=== PATIENT | female | born 1955 | race African-American/Black ===

== ENCOUNTER 2016-05-09 17:02 | Emergency (ER) | payer MEDICAID, OTHER ==
[~2016-05-09] VITALS: Ht 182.9 cm; Wt 135.2 kg
[~2016-05-09 17:02] MED LIST: ALBUTEROL SULF8.5 GM INH; ALBUTEROL2.5 MG/3 M HHN; ALBUTEROL2.5 MG/3 M INH; BENZTROPINE MESY1 MG PO; BUPROPION HCL75 MG PO; BUPROPION XL150 MG; BUSPIRONE HCL5 M1 ORAL; CYMBALTA20 MG; DESYREL50 MG; IBUPROFEN600 MG ORAL; LEVAQUIN PO; NORCO 5-325 TA1 EACH ORAL; OMEPRAZOLE20 M2 PO; PREDNISONE10 M2 PO; PREDNISONE20 MG ORAL; PROTONIX40 MG ORAL; RISPERIDONE3 MG; RISPERIDONE4 MG PO; SYMBICORT 16010.2 G1 IH; TRAMADOL HCL50 MG ORAL; TRAZODONE HCL50 MG PO; UNOBMED; VENTOLIN HFA18 GM INH; [UNRECOGNIZED DRUG - OTHER]; risperidone PO
[2016-05-09] MEDS ORDERED: DICLOFENAC SODI25 MG ORAL (17:16)
[2016-05-09 18:31] LABS: BASOPHILS % (AUTO) 2.2 % (0.0-2.0); EOSINOPHILS % (AUTO) 3.5 % (0.0-3.0); LYMPHOCYTES % (AUTO) 25.3 % (20.0-45.0); MEAN CORPUSCULAR HEMOGLOBIN 28.5 PG (27.0-31.0); MEAN CORPUSCULAR HGB CONC 31.7 G/DL (32.0-36.0); MEAN CORPUSCULAR VOLUME 90 FL (80-99); MEAN PLATELET VOLUME 5.5 FL (6.5-10.1); MONOCYTES % (AUTO) 7.4 % (1.0-10.0); NEUTROPHILS % (AUTO) 61.6 % (45.0-75.0); PLATELET COUNT 349 K/UL (150-450); RED BLOOD COUNT 3.79 M/UL (4.20-5.40); RED CELL DISTRIBUTION WIDTH 13.4 % (11.6-14.8); WHITE BLOOD COUNT 6.3 K/UL (4.8-10.8)
--- NOTE | 2016-05-09 18:41 | Emergency Room Report ---
History of Present Illness General Chief Complaint: General Complaint Source: Patient Present Illness HPI 52-year-old female presents ED complaining of right leg swelling and dizziness. Patient states the last several weeks she has had increased swelling in her right ankle and calf. Patient states she was started on "water pills" by her PMD one month ago but states it is not helping. Denies any shortness of breath. Denies any chest pain. Patient also states she feels dizzy at times. States dizziness can happen for a few seconds then immediately resolved. happens occasionally. Denies any dizziness at this time. Also notes intermittent headaches, 5/10, sharp, associated with nausea. Denies vomiting. Denies neck stiffness. Denies fevers or chills. No aggravating relieving factors. Denies any other associated symptom Allergies: Coded Allergies: FISH CONTAINING PRODUCTS (Verified Allergy, Severe, Hives, 06/14/12) Pork (Verified Allergy, Intermediate, 06/09/13) smelling pork cause nausea-eating pork cause vomiting Patient History Past Medical History: asthma, COPD Past Surgical History: none Pertinent Family History: none Social History: Denies: alcohol use, drug use, smoking Now: No Immunizations: UTD Reviewed Nursing Documentation: PMH: Agreed, PSxH: Agreed Nursing Documentation-PMH Hx Hypertension: No - ARTHRITIS Hx Asthma: Yes Hx COPD: Yes Hx Cancer: No Hx Gastrointestinal Problems: Yes Hx Neurological Problems: No Review of Systems All Other Systems: negative except mentioned in HPI Physical Exam Vital Signs Date Time Temp Pulse Resp B/P Pulse Ox O2 Delivery O2 Flow Rate FiO2 05/09/16 17:11 98.1 109 20 131/89 98 Room Air Sp02 EP Interpretation: reviewed, normal General Appearance: no apparent distress, alert, GCS 15, non-toxic, obese Head: normocephalic, atraumatic Eyes: bilateral eye PERRL, bilateral eye normal inspection ENT: hearing grossly normal, normal pharynx, no angioedema, normal voice Neck: full range of motion, supple/symm/no masses Respiratory: chest non-tender, lungs clear, normal breath sounds, speaking full sentences Cardiovascular #1: regular rate, rhythm, no edema Cardiovascular #2: 2+ carotid (R), 2+ carotid (L), 2+ radial (R), 2+ radial (L) , 2+ dorsalis pedis (R), 2+ dorsalis pedis (L) Gastrointestinal: normal bowel sounds, non tender, soft, non-distended, no guarding, no rebound Rectal: deferred Genitourinary: normal inspection, no CVA tenderness Musculoskeletal: back normal, gait/station normal, normal range of motion, non- tender, swelling - R ankle. 1+ Neurologic: alert, oriented x3, responsive, motor strength/tone normal, sensory intact, speech normal Psychiatric: judgement/insight normal, memory normal, mood/affect normal, no suicidal/homicidal ideation Reflexes: 3+ bicep (R), 3+ bicep (L), 3+ tricep (R), 3+ tricep (L), 3+ knee (R) , 3+ knee (L) Skin: normal color, no rash, warm/dry, well hydrated Lymphatic: no adenopathy Medical Decision Making Diagnostic Impression: Primary Impression: Pedal edema ER Course Hospital Course 52-year-old female presents ED complaining of right leg swelling, intermittent headaches and dizziness Differential diagnoses include: arrythmia, dehydration, intracranial bleed, seizure , DVT Clinical course Patient placed on stretcher. on tube knitter. After initial history and physical I ordered labs, EKG, chest Xray, IVFs, CT Brain , Doppler ultrasound labs reviewed- no leukocytosis, Hb/Hct stable, electrolytes ok, troponins negative CT Brain - unremarkable Chest x-ray- no acute process EKG - NSr, no acute changes Doppler US - no evidence of DVT I. I feel this is a highly complex case requiring extensive working including EKG/Rhythm strip, Xray/CT/US, Blood/urine lab work, repeat exams while in ED, and administration of strong opiates/narcotics for pain control, admission to hospital or close patient follow up. Diagnosis - pedal edema Stable and discharged to home. continue medications as directed. Followup with PMD. Return to ED if symptoms recur or worsen Labs Test 05/09/16 18:10 White Blood Count 6.3 K/UL (4.8-10.8) Red Blood Count 3.79 M/UL (4.20-5.40) Hemoglobin 10.8 G/DL (12.0-16.0) Hematocrit 34.1 % (37.0-47.0) Mean Corpuscular Volume 90 FL (80-99) Mean Corpuscular Hemoglobin 28.5 PG (27.0-31.0) Mean Corpuscular Hemoglobin Concent 31.7 G/DL (32.0-36.0) Red Cell Distribution Width 13.4 % (11.6-14.8) Platelet Count 349 K/UL (150-450) Mean Platelet Volume 5.5 FL (6.5-10.1) Neutrophils (%) (Auto) 61.6 % (45.0-75.0) Lymphocytes (%) (Auto) 25.3 % (20.0-45.0) Monocytes (%) (Auto) 7.4 % (1.0-10.0) Eosinophils (%) (Auto) 3.5 % (0.0-3.0) Basophils (%) (Auto) 2.2 % (0.0-2.0) Sodium Level 144 mEQ/L (135-145) Potassium Level 3.5 mEQ/L (3.4-4.9) Chloride Level 102 mEQ/L (98-107) Carbon Dioxide Level 29 mEQ/L (20-30) Anion Gap 13 (5-15) Blood Urea Nitrogen 10 mg/dL (7-23) Creatinine 1.0 mg/dL (0.5-0.9) Estimat Glomerular Filtration Rate > 60 mL/min (>60) Glucose Level 94 mg/dL (74-106) Calcium Level 9.1 mg/dL (8.6-10.2) Total Bilirubin 0.2 mg/dL (0.0-1.2) Aspartate Amino Transf (AST/SGOT) 22 U/L (5-40) Alanine Aminotransferase (ALT/SGPT) 19 U/L (3-33) Alkaline Phosphatase 114 U/L (35-104) Total Creatine Kinase 451 U/L (26-140) Creatine Kinase MB 5.5 ng/mL (< 3.8) Creatine Kinase MB Relative Index 1.2 Troponin I < 0.30 ng/mL (<=0.30) Total Protein 6.6 g/dL (6.6-8.7) Albumin 3.9 g/dL (3.5-5.2) Globulin 2.7 g/dL Albumin/Globulin Ratio 1.4 (1.0-2.7) EKG Diagnostic Results Rate: tachycardiac Rhythm: NSR ST Segments: no acute changes ASA given to the pt in ED: No Rhythm Strip Diag. Results EP Interpretation: yes Rhythm: NSR, no PVC's, no ectopy Chest X-Ray Diagnostic Results EP Interpretation: Yes Findings: no consolidation, no effusion, no pneumothorax, no acute cardiopulmonary disease Number of Views: 1 CT/MRI/US Diagnostic Results CT/MRI/US Diagnostic Results : Imaging Test Ordered: CT Head, Doppler US Impression CT Head - no acute process Doppler US - no evidence of DVT Last Vital Signs Date Time Temp Pulse Resp B/P Pulse Ox O2 Delivery O2 Flow Rate FiO2 05/09/16 17:11 98.1 109 20 131/89 98 Room Air Status: improved Disposition: HOME, SELF-CARE Condition: Stable Referrals: [facility] (PCP) FRANCESCO HOOKS M.D. May 09, 2016 18:41
[2016-05-09 18:42] LABS: TROPONIN I < 0.30 ng/mL (<=0.30)
[2016-05-09 18:45] LABS: ALANINE AMINOTRANSFERASE 19 U/L (3-33); ALBUMIN/GLOBULIN RATIO 1.4 (1.0-2.7); ANION GAP 13 (5-15); ASPARTATE AMINO TRANSFERASE 22 U/L (5-40); CALCIUM 9.1 mg/dL (8.6-10.2); CARBON DIOXIDE 29 mEQ/L (20-30); CHLORIDE 102 mEQ/L (98-107); GLOMERULAR FILTRATION RATE > 60 mL/min (>60); HEMOLYSIS 5; POTASSIUM 3.5 mEQ/L (3.4-4.9); SODIUM 144 mEQ/L (135-145); TOTAL PROTEIN 6.6 g/dL (6.6-8.7)
[2016-05-09 18:55] LABS: CKMB 5.5 ng/mL (< 3.8)
[2016-05-09 19:39] VITALS: BP 136/84
[2016-05-09 19:40] VITALS: BP 136/84
--- NOTE | 2016-05-10 08:35 | Diagnostic Imaging Report ---
Indication: Dizziness x1 week Technique: Continuous helical CT scanning of the head was performed without intravenous contrast material. Axial and coronal 5 mm sections were generated. Dose: Total Dose Length Product - DLP [address] Dose Index - CTDIvol(s) 70.38 mGy. Comparison:None. Findings: The ventricular system is normal in size and configuration. There is no shift of midline structures. No abnormal extra-axial fluid collections are noted. There is no evidence of intracerebral bleeding. No other abnormal high or low density areas are noted within the brain. Salter skin is enlarged and filled with CSF density. Impression: Empty sella. Otherwise normal CT scan of the head without contrast material. The above report is concordant with preliminary reading by [employer] with minor difference. The CT scanner at [facility] is accredited by the [employer] and the scans are performed using protocols designed to limit radiation exposure to as low as reasonably achievable to attain images of sufficient resolution adequate for diagnostic evaluation.
--- NOTE | 2016-05-10 10:08 | Diagnostic Imaging Report ---
Indication: DIZZY Technique: XRAY CHEST 1 V. Comparison: 12/11/2013 Findings: The cardiomediastinal silhouette is stable. There are no acute infiltrates. Study is suboptimal due to patient body habitus. No pleural fluid. Impression: No acute abnormality. No gross change from prior examination. .
--- NOTE | 2016-05-11 13:55 | Cardiology Report ---
APPROVED REPORT EKG Measurement Heart [id number] Sinus tachycardia Incomplete right bundle branch block Cannot rule out Inferior infarct, age undetermined Abnormal ECG
--- NOTE | 2016-05-13 22:51 | Diagnostic Imaging Report ---
APPROVED REPORT CPT Code: 32429 Present Symptoms Comments: R/O DVT RIGHT LEG: Venous imaging reveals a patent deep venous system. There is no evidence of thrombus within the femoral, popliteal or tibial segments. The greater saphenous vein is also within normal limits. Doppler indicates normal spontaneous flow within these segments.
== END 2016-05-09 19:52 | disposition home or self-care (01) ==
LOC: EMR 18:01
DX: R60.0 Localized edema (principal); R51 Headache; R42 Dizziness and giddiness; Z91.013 Allergy to seafood; Z91.018 Allergy to other foods; J44.9 Chronic obstructive pulmonary disease, unspecified; J45.909 Unspecified asthma, uncomplicated; M19.90 Unspecified osteoarthritis, unspecified site
CPT/HCPCS: 36415; 70450; 71010; 80053; 82550; 82553; 84484; 85025; 93005; 93970; 96374

== ENCOUNTER 2016-06-22 17:23 | Emergency (ER) | payer MEDICAID, OTHER ==
[~2016-06-22] VITALS: Ht 182.9 cm; Wt 146.5 kg
[~2016-06-22 17:23] MED LIST changes: +DICLOFENAC SODI25 MG ORAL
[2016-06-22 17:34] VITALS: BP 123/73
--- NOTE | 2016-06-22 18:14 | Emergency Room Report ---
History of Present Illness General Chief Complaint: Dyspnea/Respdistress Source: Patient, Medical Record, EMS Present Illness HPI Patient process with complaints of shortness of breath Reports that she has had some increased swelling in both of her legs Denies any headache or visual changes Denies any chest Denies any back or flank pain Denies any fall or trauma Patient reports that she does have fluid buildup but is not sure why she gets this Patient is on water pills Allergies: Coded Allergies: FISH CONTAINING PRODUCTS (Verified Allergy, Severe, Hives, 06/14/12) Pork (Verified Allergy, Intermediate, 06/09/13) smelling pork cause nausea-eating pork cause vomiting Patient History Past Medical History: see triage record Pertinent Family History: none Reviewed Nursing Documentation: PMH: Agreed, PSxH: Agreed Nursing Documentation-PMH Past Medical History: No History, Except For Hx Hypertension: No - ARTHRITIS Hx Asthma: Yes Hx Cancer: No Hx Gastrointestinal Problems: Yes Hx Neurological Problems: No Review of Systems All Other Systems: negative except mentioned in HPI Physical Exam Vital Signs Date Time Temp Pulse Resp B/P Pulse Ox O2 Delivery O2 Flow Rate FiO2 06/22/16 17:17 98.1 107 22 123/73 99 Room Air Sp02 EP Interpretation: reviewed, normal General Appearance: well appearing, no apparent distress Head: normocephalic, atraumatic Eyes: bilateral eye EOMI, bilateral eye PERRL ENT: hearing grossly normal, normal pharynx, TMs + canals normal, uvula midline Neck: full range of motion, supple, no meningismus, no bony tend Respiratory: no rhonchi, no respiratory distress, no retraction, no accessory muscle use, crackles - in both lower lobes Cardiovascular #1: normal peripheral pulses, regular rate, rhythm, no gallop, no JVD, no murmur Gastrointestinal: normal bowel sounds, non tender, soft, no mass, no organomegaly, non-distended, no guarding, no hernia, no pulsatile mass, no rebound Genitourinary: no CVA tenderness Musculoskeletal: swelling - 2/4 pitting in both LE Neurologic: oriented x3, responsive, conference center coordinator III-XII nml as tested, motor strength/ tone normal, sensory intact Psychiatric: mood/affect normal Skin: other - As above Lymphatic: normal inspection, no adenopathy Medical Decision Making Diagnostic Impression: Primary Impression: Dyspnea Additional Impression: COPD exacerbation ER Course Patient is a fairly complex patient with multiple differential to consideration including but not limited to cardiac cardiopulmonary and vascular emergencies Patient remains appropriate on room air Did significantly better with breathing treatments in route At this time chest x-ray imaging and blood work are appropriate Patient has run out of her inhaler Active potentially have worsened her symptoms patient is also placed on oral steroids and will have initial conservative outpatient trial Labs Test 06/22/16 18:18 White Blood Count 6.9 K/UL (4.8-10.8) Red Blood Count 4.06 M/UL (4.20-5.40) Hemoglobin 12.3 G/DL (12.0-16.0) Hematocrit 37.1 % (37.0-47.0) Mean Corpuscular Volume 91 FL (80-99) Mean Corpuscular Hemoglobin 30.4 PG (27.0-31.0) Mean Corpuscular Hemoglobin Concent 33.3 G/DL (32.0-36.0) Red Cell Distribution Width 13.4 % (11.6-14.8) Platelet Count 279 K/UL (150-450) Mean Platelet Volume 5.9 FL (6.5-10.1) Neutrophils (%) (Auto) 58.9 % (45.0-75.0) Lymphocytes (%) (Auto) 32.0 % (20.0-45.0) Monocytes (%) (Auto) 6.1 % (1.0-10.0) Eosinophils (%) (Auto) 2.2 % (0.0-3.0) Basophils (%) (Auto) 0.9 % (0.0-2.0) Sodium Level 140 mEQ/L (135-145) Potassium Level 3.9 mEQ/L (3.4-4.9) Chloride Level 97 mEQ/L (98-107) Carbon Dioxide Level 27 mEQ/L (20-30) Anion Gap 16 (5-15) Blood Urea Nitrogen 13 mg/dL (7-23) Creatinine 1.0 mg/dL (0.5-0.9) Estimat Glomerular Filtration Rate > 60 mL/min (>60) Glucose Level 95 mg/dL (74-106) Calcium Level 9.2 mg/dL (8.6-10.2) Total Bilirubin 0.3 mg/dL (0.0-1.2) Aspartate Amino Transf (AST/SGOT) 24 U/L (5-40) Alanine Aminotransferase (ALT/SGPT) 19 U/L (3-33) Alkaline Phosphatase 122 U/L (35-104) Total Creatine Kinase 463 U/L (26-140) Creatine Kinase MB 6.1 ng/mL (< 3.8) Creatine Kinase MB Relative Index 1.3 Troponin I < 0.30 ng/mL (<=0.30) Pro-B-Type Natriuretic Peptide 47 pg/mL (0-125) Total Protein 7.0 g/dL (6.6-8.7) Albumin 4.1 g/dL (3.5-5.2) Globulin 2.9 g/dL Albumin/Globulin Ratio 1.4 (1.0-2.7) EKG Diagnostic Results Rate: normal Rhythm: NSR ST Segments: other - Nonspecific ST and T-wave changes Rhythm Strip Diag. Results EP Interpretation: yes Rate: 77 Rhythm: NSR, no PVC's, no ectopy Chest X-Ray Diagnostic Results EP Interpretation: Yes Findings: no consolidation, no effusion, no pneumothorax Number of Views: 1 Last Vital Signs Date Time Temp Pulse Resp B/P Pulse Ox O2 Delivery O2 Flow Rate FiO2 06/22/16 17:35 107 22 Room Air 06/22/16 17:34 98.1 123/73 99 Status: improved Disposition: HOME, SELF-CARE Condition: Improved Scripts Prednisone* (PREDNISONE*) 20 Mg Tablet 20 MG ORAL BID, #6 TAB Prov: REN LAZCANO D.O. 06/22/16 Albuterol Sulfate* (ALBUTEROL SULFATE MDI*) 8.5 Gm Hfa.aer.ad 2 PUFF INH Q6H, #1 EA 0 Refills Prov: REN LAZCANO D.O. 06/22/16 Referrals: [facility] (PCP) Additional Instructions: Patient is provided with the discharge instructions notified to follow up with primary doctor in the next 2-3 days otherwise return to the er with any worsening symptoms. Please note that this report is being documented using [employer] technology. This can lead to erroneous entry secondary to incorrect interpretation by the dictating instrument. REN LAZCANO D.O. Jun 22, 2016 18:13
[2016-06-22 18:46] LABS: BASOPHILS % (AUTO) 0.9 % (0.0-2.0); EOSINOPHILS % (AUTO) 2.2 % (0.0-3.0); MEAN CORPUSCULAR HEMOGLOBIN 30.4 PG (27.0-31.0); MEAN CORPUSCULAR HGB CONC 33.3 G/DL (32.0-36.0); MEAN CORPUSCULAR VOLUME 91 FL (80-99); MEAN PLATELET VOLUME 5.9 FL (6.5-10.1); MONOCYTES % (AUTO) 6.1 % (1.0-10.0); NEUTROPHILS % (AUTO) 58.9 % (45.0-75.0); PLATELET COUNT 279 K/UL (150-450); RED BLOOD COUNT 4.06 M/UL (4.20-5.40); RED CELL DISTRIBUTION WIDTH 13.4 % (11.6-14.8); WHITE BLOOD COUNT 6.9 K/UL (4.8-10.8)
[2016-06-22] MEDS ORDERED: Furosemide 40mg tab ORAL ONE (19:00)
[2016-06-22 19:15] LABS: ALANINE AMINOTRANSFERASE 19 U/L (3-33); ALBUMIN/GLOBULIN RATIO 1.4 (1.0-2.7); ANION GAP 16 (5-15); ASPARTATE AMINO TRANSFERASE 24 U/L (5-40); CALCIUM 9.2 mg/dL (8.6-10.2); CARBON DIOXIDE 27 mEQ/L (20-30); CHLORIDE 97 mEQ/L (98-107); GLOMERULAR FILTRATION RATE > 60 mL/min (>60); HEMOLYSIS 12; POTASSIUM 3.9 mEQ/L (3.4-4.9); SODIUM 140 mEQ/L (135-145); TROPONIN I < 0.30 ng/mL (<=0.30)
[2016-06-22 19:25] LABS: CKMB 6.1 ng/mL (< 3.8)
[2016-06-22] MEDS ORDERED: ALBUTEROL SULF8.5 GM INH (19:43)
[2016-06-22] MEDS ORDERED: PREDNISONE20 MG ORAL (19:44)
[2016-06-22] MEDS ORDERED: PredniSONE 20mg tab ORAL ONE (20:00)
[2016-06-22 20:04] VITALS: BP 134/82
[2016-06-22 20:08] VITALS: BP 134/82
--- NOTE | 2016-06-23 13:41 | Diagnostic Imaging Report ---
Indications: Chest pain and shortness of breath Technique: Portable AP chest Findings: Comparison: 05/09/2016 Cardiac silhouette remains normal in size. Pulmonary vasculature remains within normal limits. Decrease in bibasal linear densities. Lungs and pleura remain otherwise clear. Mild calcification of the aortic arch is again noted. IMPRESSION: No evidence of acute disease, unchanged Decrease in pulmonary bibasal subsegmental atelectasis versus decreased conspicuity of scarring Aortosclerosis
== END 2016-06-22 20:08 | disposition home or self-care (01) ==
LOC: EDBD 17:23 → EMR 18:04
DX: J44.1 Chronic obstructive pulmonary disease with (acute) exacerbation (principal); R06.00 Dyspnea, unspecified; R22.43 Localized swelling, mass and lump, lower limb, bilateral; Z91.013 Allergy to seafood; Z91.018 Allergy to other foods; M19.90 Unspecified osteoarthritis, unspecified site
CPT/HCPCS: 36415; 71010; 80053; 82550; 82553; 83880; 84484; 85025; 93005; 99284

== ENCOUNTER 2017-05-15 09:44 | Emergency (ER) | payer MEDICAID, OTHER ==
[~2017-05-15] VITALS: Ht 182.9 cm; Wt 140.6 kg
[2017-05-15 10:00] VITALS: BP 127/75
[2017-05-15] MEDS ORDERED: DiphenhydrAMINE 50mg/ml Inj IVP ONE (10:15)
[2017-05-15] MEDS ORDERED: Ketorolac 30mg Inj IV ONE (10:15)
--- NOTE | 2017-05-15 10:36 | Emergency Room Report ---
History of Present Illness General Chief Complaint: Headache Source: Patient Present Illness HPI The patient presents with headache. This began with nausea after eating a salad yesterday. She noted she had a headache during the night about midnight, it did not wake her up. She woke up at 3 AM and the pain was worse. She feels it in the frontal area. She took Motrin at that time. She went back to sleep and then woke up again and the headache was worse. She tried taking Copeland and the nausea got worse after that. The pain currently is 7-8/10. She's never had a headache like this before. It was gradual onset. She has no family history of aneurysms. She denies any fevers. The pain is somewhat worse when she moves her head about. She denies any neck stiffness. There is right-sided neck tenderness. No nasal discharge or sore throat. On April 16 she had hiatal hernia repair at [facility]. She still has some tenderness there appeared to be moving her bowels without any difficulty. She's not vomiting. No dysuria. She has COPD and has heard herself wheezing. Allergies: Coded Allergies: FISH CONTAINING PRODUCTS (Verified Allergy, Severe, Hives, 06/14/12) Pork (Verified Allergy, Intermediate, 06/09/13) smelling pork cause nausea-eating pork cause vomiting Patient History Past Medical History: see triage record Past Surgical History: other - hiatal hernia surgery Social History: Denies: smoking Social History Narrative lives by self. Sister brought her in Reviewed Nursing Documentation: PMH: Agreed, PSxH: Agreed Nursing Documentation-PMH Past Medical History: No History, Except For Hx Hypertension: No Hx Asthma: Yes Hx COPD: Yes - Emphysema Hx Cancer: No Hx Gastrointestinal Problems: Yes - GERD, Hiatal hernia Hx Neurological Problems: No Review of Systems All Other Systems: negative except mentioned in HPI Physical Exam Vital Signs Date Time Temp Pulse Resp B/P (MAP) Pulse Ox O2 Delivery O2 Flow Rate FiO2 05/15/17 09:58 98.0 94 16 149/95 92 Room Air 98.1 Sp02 EP Interpretation: reviewed, normal General Appearance: well appearing, no apparent distress, GCS 15 Head: normocephalic Eyes: bilateral eye normal inspection, bilateral eye PERRL, bilateral eye EOMI ENT: moist mucus membranes Neck: supple, no meningismus, no bony tend Respiratory: lungs clear, normal breath sounds Cardiovascular #1: regular rate, rhythm Cardiovascular #2: 2+ radial (R) Gastrointestinal: normal inspection, normal bowel sounds, no mass, non- distended, no guarding, no rebound, tenderness - surgical scars recent, tender skin incisions, no erythema, overweight Musculoskeletal: back normal, normal range of motion Neurologic: alert, oriented x3, pest control chemical technician III-XII nml as tested, motor strength/tone normal, DTRs symmetric, sensory intact, cerebellar normal, normal gait, speech normal Psychiatric: mood/affect normal Skin: warm/dry, other - see abdomen Medical Decision Making Diagnostic Impression: Primary Impression: Headache Qualified Codes: R51 - Headache Additional Impressions: Nausea asthma Empty sella ER Course The patient presents with worst headache of her life. This was not sudden onset. Still differential includes subarachnoid bleed, migraine, sinusitis, tension headache, anesthesia reaction amongst others. She has nausea associated with this. No h/o HTN or family history of aneurism. Evaluation will be with CT of the head, chest x-ray and labs including sedimentation rate. The patient will be treated with Compazine, Benadryl and Toradol and also Pepcid. Labs unremarkable. CT also without mass, bleed, edema. No sinusitis noted. Pain 3/10 after meds. Repeat neuro fully normal. Patient states that her asthma is stable. She has inhalers. She does not want prednisone or steroid inhaler. We discussed the CT scan results which revealed empty sella. She states that hormone testing has been done in the past and has been normal. In addition I mentioned about the possible lymph node in the right hilum. Copies of her x- ray results will be given to her. Risk of bleed < 2% based on recent literature. She just filled Rx for Copeland (from operation) and also has ibuprofen. The patient is improved and stable for outpatient observation and treatment. Laboratory Tests Test 05/15/17 10:21 05/15/17 10:57 White Blood Count 4.3 K/UL (4.8-10.8) L Red Blood Count 4.19 M/UL (4.20-5.40) L Hemoglobin 11.7 G/DL (12.0-16.0) L Hematocrit 37.2 % (37.0-47.0) Mean Corpuscular Volume 89 FL (80-99) Mean Corpuscular Hemoglobin 27.8 PG (27.0-31.0) Mean Corpuscular Hemoglobin Concent 31.3 G/DL (32.0-36.0) L Red Cell Distribution Width 13.4 % (11.6-14.8) Platelet Count 298 K/UL (150-450) Mean Platelet Volume 5.8 FL (6.5-10.1) L Neutrophils (%) (Auto) 51.0 % (45.0-75.0) Lymphocytes (%) (Auto) 35.6 % (20.0-45.0) Monocytes (%) (Auto) 7.5 % (1.0-10.0) Eosinophils (%) (Auto) 4.6 % (0.0-3.0) H Basophils (%) (Auto) 1.2 % (0.0-2.0) Erythrocyte Sedimentation Rate 25 MM/HR (0-30) Prothrombin Time 10.3 SEC (9.30-11.50) Prothrombin Time INR 1.0 (0.9-1.1) PTT 26 SEC (23-33) Sodium Level 143 MMOL/L (136-145) Potassium Level 3.3 MMOL/L (3.5-5.1) L Chloride Level 107 MMOL/L (98-107) Carbon Dioxide Level 32 MMOL/L (21-32) Anion Gap 5 mmol/L (5-15) Blood Urea Nitrogen 5 mg/dL (7-18) L Creatinine 1.0 MG/DL (0.55-1.30) Estimate Glomerular Filtration Rate > 60 mL/min (>60) Glucose Level 107 MG/DL (74-106) H Calcium Level 8.5 MG/DL (8.5-10.1) Total Bilirubin 0.3 MG/DL (0.2-1.0) Aspartate Amino Transferase (AST) 20 U/L (15-37) Alanine Aminotransferase (ALT) 24 U/L (12-78) Alkaline Phosphatase 102 U/L (46-116) Total Creatine Kinase 220 U/L (26-308) Troponin I 0.000 ng/mL (0.000-0.056) Pro-B-Type Natriuretic Peptide 78 pg/mL (0-125) Total Protein 7.2 G/DL (6.4-8.2) Albumin 3.4 G/DL (3.4-5.0) Globulin 3.8 g/dL Albumin/Globulin Ratio 0.9 (1.0-2.7) L Lipase 54 U/L (73-393) L Urine Color Yellow Urine Appearance Clear Urine pH 6 (4.5-8.0) Urine Specific [place] 1.015 (1.005-1.035) Urine Protein Negative (NEGATIVE) Urine Glucose (UA) Negative (NEGATIVE) Urine Ketones Negative (NEGATIVE) Urine Occult Blood 2+ (NEGATIVE) H Urine Nitrite Negative (NEGATIVE) Urine Bilirubin Negative (NEGATIVE) Urine Urobilinogen 1 MG/DL (0.0-1.0) H Urine Leukocyte Esterase Negative (NEGATIVE) Urine RBC 2-4 /HPF (0 - 2) H Urine WBC 0-2 /HPF (0 - 2) Urine Squamous Epithelial Cells Few /LPF (NONE/OCC) Urine Bacteria Occasional /HPF (NONE) Urine Mucus Few /LPF (NONE/OCC) H EKG Diagnostic Results Rate: normal Rhythm: NSR ST Segments: no acute changes Rhythm Strip Diag. Results EP Interpretation: yes Rhythm: NSR, no PVC's, no ectopy Chest X-Ray Diagnostic Results Chest X-Ray Diagnostic Results : Chest X-Ray Ordered: Yes # of Views/Limited/Complete: 1 View Indication: Other EP Interpretation: Yes Interpretation: no consolidation, no effusion, no pneumothorax, other - possible R hilar node Impression: No acute disease Electronically Signed by: Artur Cruz MD CT/MRI/US Diagnostic Results CT/MRI/US Diagnostic Results : Imaging Test Ordered: head Impression no mass, empty sella Last Vital Signs Date Time Temp Pulse Resp B/P (MAP) Pulse Ox O2 Delivery O2 Flow Rate FiO2 05/15/17 12:41 98.6 81 12 130/78 96 Room Air 98.6 Status: improved Disposition: HOME, SELF-CARE Condition: Improved Scripts Ondansetron Odt* (ZOFRAN ODT*) 4 Mg Tab.rapdis 4 MG ORAL Q8HR Y for Nausea & Vomiting, #6 TAB 1 Refill Prov: Artur Cruz M.D. 05/15/17 Artur Cruz M.D. May 15, 2017 10:35
[2017-05-15] MEDS ORDERED: NORCO 5-325 TA1 EAC1 ORAL (10:42)
[2017-05-15 10:43] LABS: BASOPHILS % (AUTO) 1.2 % (0.0-2.0); EOSINOPHILS % (AUTO) 4.6 % (0.0-3.0); HEMATOCRIT 37.2 % (37.0-47.0); HEMOGLOBIN 11.7 G/DL (12.0-16.0); LYMPHOCYTES % (AUTO) 35.6 % (20.0-45.0); MEAN CORPUSCULAR VOLUME 89 FL (80-99); MONOCYTES % (AUTO) 7.5 % (1.0-10.0); PLATELET COUNT 298 K/UL (150-450); RED BLOOD COUNT 4.19 M/UL (4.20-5.40); RED CELL DISTRIBUTION WIDTH 13.4 % (11.6-14.8); WHITE BLOOD COUNT 4.3 K/UL (4.8-10.8)
[2017-05-15 10:54] LABS: ANION GAP 5 mmol/L (5-15); BLOOD UREA NITROGEN 5 mg/dL (7-18); CALCIUM 8.5 MG/DL (8.5-10.1); CARBON DIOXIDE 32 MMOL/L (21-32); CHLORIDE 107 MMOL/L (98-107); POTASSIUM 3.3 MMOL/L (3.5-5.1); SODIUM 143 MMOL/L (136-145)
[2017-05-15 11:04] LABS: ALANINE AMINOTRANSFERASE 24 U/L (12-78); ALBUMIN 3.4 G/DL (3.4-5.0); ALBUMIN/GLOBULIN RATIO 0.9 (1.0-2.7); ALKALINE PHOSPHATASE 102 U/L (46-116); ASPARTATE AMINO TRANSFERASE 20 U/L (15-37); BILIRUBIN,TOTAL 0.3 MG/DL (0.2-1.0); CREATINE KINASE 220 U/L (26-308)
[2017-05-15 11:06] LABS: APPEARANCE,URINE CLEAR; BILIRUBIN, URINE NEGATIVE (NEGATIVE); GLUCOSE, URINE (UA) NEGATIVE (NEGATIVE); KETONES,URINE NEGATIVE (NEGATIVE); LEUKOCYTE ESTERASE ,URINE NEGATIVE (NEGATIVE); NITRITE,URINE NEGATIVE (NEGATIVE); PH,URINE 6 (4.5-8.0); PROTEIN,URINE NEGATIVE (NEGATIVE); UROBILINOGEN,URINE 1 MG/DL (0.0-1.0)
[2017-05-15 11:21] LABS: COLOR,URINE YELLOW
--- NOTE | 2017-05-15 11:44 | Diagnostic Imaging Report ---
Indication: Headache Technique: Continuous helical CT scanning of the head was performed utilizing automated exposure control without intravenous contrast material. Axial and coronal reconstructions were obtained. Comparison: 05/09/2016 CT dose: Total DLP 1277.56 mGycm; CTDI vol 70.38 mGy Findings: There is no acute intracranial hemorrhage, mass effect or cortical edema. The ventricles, cisterns and sulci are normal for age. Empty sella again noted. Visualized mastoid air cells and paranasal sinuses are unremarkable. No focal lesions of the bony calvarium or soft tissues of the scalp are seen. Atherosclerotic vascular calcifications noted within the cavernous portions of the bilateral internal carotid arteries. IMPRESSION: No evidence of acute intracranial hemorrhage, mass effect or cortical edema. MRI may be obtained for more sensitive evaluation as clinically indicated. The CT scanner at [facility] is accredited by the [employer] and the scans are performed using protocols designed to limit radiation exposure to as low as reasonably achievable to attain images of sufficient resolution adequate for diagnostic evaluation.
--- NOTE | 2017-05-15 11:46 | Diagnostic Imaging Report ---
Indication: Headache, pain Technique: XRAY Chest 1v Comparison: 06/22/2016 Findings: Patient rotated to the right heart size and mediastinal contours are stable. There is question of patchy opacity at the right base which may be partly artifactual from overlying breast tissue however developing infiltrate not entirely excluded. No pleural effusion. No pneumothorax. Left lung is clear. No acute osseous abnormality seen. Impression: Question patchy opacity at the right base, possibly artifactual from overlying breast tissue however developing infiltrate not entirely excluded. Clinical correlation recommended.
[2017-05-15] MEDS ORDERED: ZOFRAN 4 MG4 MG/2 ML IV (12:26)
[2017-05-15 12:30] VITALS: BP 130/78
[2017-05-15] MEDS ORDERED: ZOFRAN ODT4 MG ORAL (12:39)
[2017-05-15 12:41] VITALS: BP 130/78
--- NOTE | 2017-05-18 18:45 | Cardiology Report ---
APPROVED REPORT EKG Measurement Heart [id number] Normal sinus rhythm Incomplete right bundle branch block Borderline ECG
== END 2017-05-15 12:41 | disposition home or self-care (01) ==
LOC: EMR 10:48
DX: R51 Headache (principal); R11.0 Nausea; E23.6 Other disorders of pituitary gland; J44.9 Chronic obstructive pulmonary disease, unspecified; Z91.013 Allergy to seafood; Z91.018 Allergy to other foods; K21.9 Gastro-esophageal reflux disease without esophagitis
CPT/HCPCS: 36415; 70450; 71045; 80053; 81003; 82550; 83690; 83880; 84484; 85025; 85610; 85651; 85730; 93005; 96374; 96375; 99284; J0780; J1200; J1885; S0028

== ENCOUNTER 2017-05-29 11:22 | Emergency (ER) | payer MEDICAID, OTHER ==
[~2017-05-29] VITALS: Ht 182.9 cm; Wt 145.1 kg
[~2017-05-29 11:22] MED LIST changes: +NORCO 5-325 TA1 EAC1 ORAL; +ZOFRAN 4 MG4 MG/2 ML IV; +ZOFRAN ODT4 MG ORAL
[2017-05-29 12:04] VITALS: BP 147/99
--- NOTE | 2017-05-29 12:10 | Emergency Room Report ---
History of Present Illness General Chief Complaint: Pain Source: Patient, Medical Record Present Illness HPI 61-year-old female presents with intermittent right ankle swelling for multiple days. (Per EMR this is been ongoing for years). She states she is not on diuretic, denies history of CHF. Swelling becomes worse with walking. Has been ruled out for DVT with ultrasound in the past as well. denies any acute trauma, fever, chills or redness to ankle or foot Allergies: Coded Allergies: FISH CONTAINING PRODUCTS (Verified Allergy, Severe, Hives, 06/14/12) Pork (Verified Allergy, Intermediate, 06/09/13) smelling pork cause nausea-eating pork cause vomiting Patient History Past Medical History: old chart reviewed Past Surgical History: none Pertinent Family History: none Social History: Denies: smoking, alcohol use, drug use Now: No Immunizations: UTD Reviewed Nursing Documentation: PMH: Agreed; PSxH: Agreed Nursing Documentation-PMH Past Medical History: No History, Except For Hx Hypertension: No Hx Asthma: Yes Hx COPD: Yes - Emphysema Hx Cancer: No Hx Gastrointestinal Problems: Yes - GERD, Hiatal hernia Hx Neurological Problems: No Review of Systems All Other Systems: negative except mentioned in HPI Physical Exam Vital Signs Date Time Temp Pulse Resp B/P (MAP) Pulse Ox O2 Delivery O2 Flow Rate FiO2 05/29/17 11:27 98.5 102 18 152/100 93 Room Air 98.4 Sp02 EP Interpretation: reviewed, normal General Appearance: normal inspection, well appearing, no apparent distress, alert, GCS 15, non-toxic, obese, other - ambulates with walker Head: normocephalic, atraumatic Eyes: bilateral eye PERRL, bilateral eye EOMI ENT: normal ENT inspection, hearing grossly normal, normal pharynx, no angioedema, normal voice, TMs + canals normal, uvula midline, moist mucus membranes Neck: normal inspection, full range of motion, supple, thyroid normal, no meningismus, no bony tend Respiratory: normal inspection, lungs clear, normal breath sounds, no rhonchi, no respiratory distress, no retraction, no accessory muscle use, no wheezing, speaking full sentences Cardiovascular #1: regular rate, rhythm, no edema, no JVD, normal capillary refill Gastrointestinal: normal inspection, normal bowel sounds, non tender, soft, no mass, no peritonitis, non-distended, no guarding, no hernia, no pulsatile mass Genitourinary: no CVA tenderness Musculoskeletal: normal inspection, back normal, normal range of motion, no calf tenderness, pelvis stable, Paras's Sign negative, other - Right ankle: No obvious swelling, redness/rash. No pitting edema. 1+ non-pitting edema. Negative Homans sign. No calf ttp. bedside sono: No DVT noted at popliteal fossa. Neurologic: normal inspection, alert, oriented x3, responsive, puff ironer III-XII nml as tested, motor strength/tone normal, cerebellar normal, normal gait, speech normal Psychiatric: normal inspection, judgement/insight normal, mood/affect normal, no suicidal/homicidal ideation, no delusions Skin: normal inspection, normal color, no rash Lymphatic: normal inspection, no adenopathy Medical Decision Making Diagnostic Impression: Primary Impression: Pedal edema ER Course Vital signs stable, afebrile No signs of cellulitis on exam Atraumatic No pitting edema, no CHF on exam of lungs, no history of CHF Bedside sono does not show DVT, popliteal vein is compressible Maulik bandage placed, advised patient elevated extremity while sleeping, at home PMD follow-up ER course: Patient has remained stable during ED stay. Disposition: Patient is to be discharged to home. Patient is instructed to follow up with their primary care doctor within 5 days. Strict return precautions discussed with patient such as fever, chills, worsening/severe pain, nausea, vomiting, which may indicate severe illness. Patient verbalizes understanding and agrees with plan. Please note that this Emergency Department Report was dictated using [employer] office specialist technology software, occasionally this can lead to erroneous entry secondary to interpretation by the dictation equipment Last Vital Signs Date Time Temp Pulse Resp B/P (MAP) Pulse Ox O2 Delivery O2 Flow Rate FiO2 05/29/17 12:04 98.1 99 17 147/99 95 Room Air 98.1 Status: improved Disposition: HOME, SELF-CARE Condition: Improved Patient Instructions: Edema, [id number] Additional Instructions: - Sleep with 2 pillows under right foot - Keep MAULIK wrap on foot/ankle to push fluid out - Follow up with your doctor in 2-3 days MELISSA KIRKLAND M.D. May 29, 2017 12:10
== END 2017-05-29 12:04 | disposition home or self-care (01) ==
LOC: EMR 12:00
DX: R60.0 Localized edema (principal); J45.909 Unspecified asthma, uncomplicated; K21.9 Gastro-esophageal reflux disease without esophagitis; K44.9 Diaphragmatic hernia without obstruction or gangrene; J43.9 Emphysema, unspecified
CPT/HCPCS: 99282

== ENCOUNTER 2018-02-16 21:18 | Emergency (ER) | payer MEDICAID, OTHER ==
[~2018-02-16] VITALS: Ht 182.9 cm; Wt 131.5 kg
[2018-02-16 21:37] VITALS: BP 135/110
[2018-02-16] MEDS: Ipratropium 0.02% Inh Soln 2.5ml UD HHN SCH ×3 (21:45→22:12)
[2018-02-16] MEDS: Albuterol ud Inhalation HHN SCH ×3 (21:45→22:12)
[2018-02-16] MEDS ORDERED: Albuterol ud Inhalation HHN ONE (22:30)
[2018-02-16] MEDS ORDERED: Ipratropium 0.02% Inh Soln 2.5ml UD HHN ONE (22:30)
[2018-02-16 23:04] LABS: BASOPHILS % (AUTO) 1.1 % (0.0-2.0); HEMATOCRIT 41.5 % (37.0-47.0); HEMOGLOBIN 13.2 G/DL (12.0-16.0); LYMPHOCYTES % (AUTO) 35.9 % (20.0-45.0); MEAN CORPUSCULAR VOLUME 91 FL (80-99); NEUTROPHILS % (AUTO) 52.9 % (45.0-75.0); PLATELET COUNT 363 K/UL (150-450); RED BLOOD COUNT 4.57 M/UL (4.20-5.40); RED CELL DISTRIBUTION WIDTH 12.2 % (11.6-14.8); WHITE BLOOD COUNT 7.3 K/UL (4.8-10.8)
[2018-02-16 23:14] LABS: ANION GAP 8 mmol/L (5-15); BLOOD UREA NITROGEN 19 mg/dL (7-18); CALCIUM 9.7 MG/DL (8.5-10.1); CARBON DIOXIDE 28 MMOL/L (21-32); CHLORIDE 103 MMOL/L (98-107); CREATININE 1.3 MG/DL (0.55-1.30); POTASSIUM 4.3 MMOL/L (3.5-5.1); SODIUM 139 MMOL/L (136-145)
[2018-02-16 23:21] VITALS: BP 126/85
[2018-02-16 23:27] LABS: ALANINE AMINOTRANSFERASE 29 U/L (12-78); ALBUMIN 3.7 G/DL (3.4-5.0); ALBUMIN/GLOBULIN RATIO 0.8 (1.0-2.7); ALKALINE PHOSPHATASE 123 U/L (46-116); ASPARTATE AMINO TRANSFERASE 31 U/L (15-37); BILIRUBIN,TOTAL 0.3 MG/DL (0.2-1.0); CREATINE KINASE 1037 U/L (26-308)
[2018-02-16] MEDS ORDERED: cefTRIAXone 1 GM in NS 55 ML IVPB ONE (23:45)
[2018-02-16] MEDS ORDERED: Azithromycin 500 MG in NS 275 ML IV ONE (23:45)
[2018-02-17 00:03] LABS: APPEARANCE,URINE CLEAR; BILIRUBIN, URINE NEGATIVE (NEGATIVE); COLOR,URINE PALE YELLOW; GLUCOSE, URINE (UA) NEGATIVE (NEGATIVE); KETONES,URINE NEGATIVE (NEGATIVE); LEUKOCYTE ESTERASE ,URINE NEGATIVE (NEGATIVE); NITRITE,URINE NEGATIVE (NEGATIVE); PH,URINE 6 (4.5-8.0); PROTEIN,URINE NEGATIVE (NEGATIVE); UROBILINOGEN,URINE NORMAL MG/DL (0.0-1.0)
--- NOTE | 2018-02-17 00:12 | Emergency Room Report ---
History of Present Illness General Chief Complaint: Dyspnea/Respdistress Source: Patient, Medical Record Present Illness HPI 62-year-old female presents ED for evaluation. Complaining of shortness of breath and cough 1 week. History of asthma/COPD. States she's been using her nebulizer machine at home without movement. Cough is productive with yellowish phlegm. Denies fevers or chills. Denies chest pain. Denies sick contacts or recent travel. Did not receive flu vaccine this year. No other aggravating relieving factors. Denies any other associated symptoms Allergies: Coded Allergies: FISH CONTAINING PRODUCTS (Verified Allergy, Severe, Hives, 06/14/12) Pork (Verified Allergy, Intermediate, 06/09/13) smelling pork cause nausea-eating pork cause vomiting Patient History Past Medical History: asthma, COPD, GERD Past Surgical History: none Pertinent Family History: none Social History: Denies: smoking, alcohol use, drug use Last Menstrual Period: n/a Now: No Immunizations: UTD Reviewed Nursing Documentation: PMH: Agreed; PSxH: Agreed Nursing Documentation-PMH Past Medical History: No History, Except For Hx Hypertension: No Hx Asthma: Yes Hx COPD: Yes - Emphysema Hx Cancer: No Hx Gastrointestinal Problems: Yes - GERD, Hiatal hernia Hx Neurological Problems: No Review of Systems All Other Systems: negative except mentioned in HPI Physical Exam Vital Signs Date Time Temp Pulse Resp B/P (MAP) Pulse Ox O2 Delivery O2 Flow Rate FiO2 02/16/18 21:24 98.4 119 23 135/110 91 02/16/18 21:37 Room Air 02/16/18 21:41 15.0 100 Sp02 EP Interpretation: reviewed, normal General Appearance: alert, GCS 15, non-toxic, mild distress, obese Head: normocephalic, atraumatic Eyes: bilateral eye normal inspection, bilateral eye PERRL ENT: hearing grossly normal, normal pharynx, no angioedema, normal voice Neck: full range of motion, supple/symm/no masses Respiratory: chest non-tender, decreased breath sounds, speaking full sentences , wheezing Cardiovascular #1: regular rate, rhythm, no edema Cardiovascular #2: 2+ carotid (R), 2+ carotid (L), 2+ radial (R), 2+ radial (L) , 2+ dorsalis pedis (R), 2+ dorsalis pedis (L) Gastrointestinal: normal bowel sounds, non tender, soft, non-distended, no guarding, no rebound Rectal: deferred Genitourinary: normal inspection, no CVA tenderness Musculoskeletal: back normal, gait/station normal, normal range of motion, non- tender Neurologic: alert, oriented x3, responsive, motor strength/tone normal, sensory intact, speech normal Psychiatric: judgement/insight normal, memory normal, mood/affect normal, no suicidal/homicidal ideation Reflexes: 3+ bicep (R), 3+ bicep (L), 3+ tricep (R), 3+ tricep (L), 3+ knee (R) , 3+ knee (L) Skin: normal color, no rash, warm/dry, well hydrated Lymphatic: no adenopathy Procedures Critical Care Time Critical Care Time i. I feel this is a highly complex case requiring extensive working including EKG/Rhythm strip, Xray/CT/US, Blood/urine lab work, repeat exams while in ED, and administration of strong opiates/narcotics for pain control, admission to hospital or close patient follow up. Total time: 30 min bedside evaluation and treatment excludes procedures (EKG). Reason for critical care: respriatory distress, COPD Possible complications: hypotension, hypertension, SC, shock, arrhythmias, metabolic acidosis, end organ damage, respiratory failure. Interventions: nebs, prednsione, CXR. labs, EKG. Abx. magnesium Course: Patient presenting with shortness of breath. Mild distress. Labored breathing. History of COPD. Started on breathing treatments, nebs, chest x- ray. Chest x-ray shows questionable infiltrate in lower lung bases. On reassessment patient still has labored breathing. Labs drawn. Given magnesium. Given antibiotics. Consultations: nursing staff, EMS, family Performed by: Dr Thomas Tolerated well condition = serious j. because of unstable vital signs this patient had a condition that could potentially threaten life or limb. I feel this is a critical patient who required my full attention while patient was considered critical. Total Critical Care Time excluding procedures was greater than 35 minutes Medical Decision Making Diagnostic Impression: Primary Impression: COPD exacerbation Additional Impression: Respiratory distress ER Course Hospital Course 62-year-old F presenting to ED with SOB. h/o COPD Differential diagnoses include: Pneumonia, CHF exacerbation, pneumothorax, fluid overload Clinical course Patient placed on stretcher. On proposal consultant with stable vitals. After initial history and physical, I ordered nebulizer treatments, prednisone, CXR on reassessment patient shows no improvement CXR - hyperinflated lungs, atelectasis/?consolidation in lower lung [place] I ordered labs, IV fluids, EKG, blood cultures, UA, flu swab Labs - no leukocytosis noted, hemoglobin/hematocrit stable, electrolytes okay, lactate okay, troponins negative, flu swab negative EKG - sinus tachycardia, no acute ischemic changes interpreted by me given magnesium, abx given because of insurance patient will be transferred I feel this is a highly complex case requiring extensive working including EKG/ Rhythm strip, Xray/CT/US, Blood/urine lab work, repeat exams while in ED, and administration of strong opiates/narcotics for pain control, admission to hospital or close patient follow up. Diagnosis - COPD exacerbation, respiratory distress Patient transferred in serious condition Labs Test 02/16/18 22:45 02/16/18 23:00 02/16/18 23:50 White Blood Count 7.3 K/UL (4.8-10.8) Red Blood Count 4.57 M/UL (4.20-5.40) Hemoglobin 13.2 G/DL (12.0-16.0) Hematocrit 41.5 % (37.0-47.0) Mean Corpuscular Volume 91 FL (80-99) Mean Corpuscular Hemoglobin 28.9 PG (27.0-31.0) Mean Corpuscular Hemoglobin Concent 31.9 G/DL (32.0-36.0) Red Cell Distribution Width 12.2 % (11.6-14.8) Platelet Count 363 K/UL (150-450) Mean Platelet Volume 5.4 FL (6.5-10.1) Neutrophils (%) (Auto) 52.9 % (45.0-75.0) Lymphocytes (%) (Auto) 35.9 % (20.0-45.0) Monocytes (%) (Auto) 6.0 % (1.0-10.0) Eosinophils (%) (Auto) 4.0 % (0.0-3.0) Basophils (%) (Auto) 1.1 % (0.0-2.0) Sodium Level 139 MMOL/L (136-145) Potassium Level 4.3 MMOL/L (3.5-5.1) Chloride Level 103 MMOL/L (98-107) Carbon Dioxide Level 28 MMOL/L (21-32) Anion Gap 8 mmol/L (5-15) Blood Urea Nitrogen 19 mg/dL (7-18) Creatinine 1.3 MG/DL (0.55-1.30) Estimat Glomerular Filtration Rate 50.7 mL/min (>60) Glucose Level 100 MG/DL (74-106) Calcium Level 9.7 MG/DL (8.5-10.1) Total Bilirubin 0.3 MG/DL (0.2-1.0) Aspartate Amino Transf (AST/SGOT) 31 U/L (15-37) Alanine Aminotransferase (ALT/SGPT) 29 U/L (12-78) Alkaline Phosphatase 123 U/L (46-116) Total Creatine Kinase 1037 U/L (26-308) Creatine Kinase MB 5.0 NG/ML (0.0-3.6) Creatine Kinase MB Relative Index 0.4 Troponin I 0.000 ng/mL (0.000-0.056) Pro-B-Type Natriuretic Peptide 22 pg/mL (0-125) Total Protein 8.6 G/DL (6.4-8.2) Albumin 3.7 G/DL (3.4-5.0) Globulin 4.9 g/dL Albumin/Globulin Ratio 0.8 (1.0-2.7) Lactic Acid Level 1.10 mmol/L (0.4-2.0) Urine Color Pale yellow Urine Appearance Clear Urine pH 6 (4.5-8.0) Urine Specific [place] 1.020 (1.005-1.035) Urine Protein Negative (NEGATIVE) Urine Glucose (UA) Negative (NEGATIVE) Urine Ketones Negative (NEGATIVE) Urine Blood 2+ (NEGATIVE) Urine Nitrite Negative (NEGATIVE) Urine Bilirubin Negative (NEGATIVE) Urine Urobilinogen Normal MG/DL (0.0-1.0) Urine Leukocyte Esterase Negative (NEGATIVE) Urine RBC 2-4 /HPF (0 - 2) Urine WBC 0-2 /HPF (0 - 2) Urine Squamous Epithelial Cells Few /LPF (NONE/OCC) Urine Bacteria None /HPF (NONE) EKG Diagnostic Results Rate: normal Rhythm: NSR ST Segments: no acute changes ASA given to the pt in ED: No Rhythm Strip Diag. Results EP Interpretation: yes Rhythm: NSR, no PVC's, no ectopy Chest X-Ray Diagnostic Results Chest X-Ray Diagnostic Results : Chest X-Ray Ordered: Yes # of Views/Limited/Complete: 1 View Indication: Shortness of Breath EP Interpretation: Yes Interpretation: no pneumothorax, other - haziness/atelectasis in lower lung [place] Impression: Other - COPD/PNA Electronically Signed by: Electronically signed by Bert Thomas MD Last Vital Signs Date Time Temp Pulse Resp B/P (MAP) Pulse Ox O2 Delivery O2 Flow Rate FiO2 02/16/18 23:21 98.4 111 15 126/85 96 Nasal Cannula 2.0 100 Status: improved Disposition: XFER SHT-TRM HOSP Condition: Serious Referrals: [facility],REFERR[facility] (PCP) Bert Thomas MD Feb 17, 2018 00:12
[2018-02-17 01:18] VITALS: BP 113/78
--- NOTE | 2018-02-17 10:28 | Diagnostic Imaging Report ---
Indication: Shortness of breath, cough Technique: XRAY Chest 1v Comparison: 05/15/2017 Findings: Heart size and mediastinal contours within normal limits. There is mild hyperinflation. There is streaky opacity at the right base. No pleural effusion or pneumothorax. Degenerative changes of the spine. No acute osseous abnormality. Impression: Hyperinflation suggestive of COPD. Correlate clinically. Streaky opacity at the right base may be related to scarring or atelectasis. The possibility of developing infiltrate not excludable. Correlate clinically. This corresponds with the preliminary interpretation of the treating ER physician, as documented in the electronic medical record.
== END 2018-02-17 01:31 | disposition short-term general hospital (02) ==
LOC: EMR 21:31
DX: J45.901 Unspecified asthma with (acute) exacerbation (principal); K21.9 Gastro-esophageal reflux disease without esophagitis; K44.9 Diaphragmatic hernia without obstruction or gangrene
CPT/HCPCS: 36415; 71045; 80053; 81003; 82550; 82553; 83605; 83880; 84484; 85025; 86710; 87040; 93005; 94640; 94664; 96365; 96367; 96368; 99291; J0456; J0696; J7050; J7512

== ENCOUNTER 2018-06-23 18:39 | Emergency (ER) | payer MEDICAID, OTHER ==
[~2018-06-23] VITALS: Ht 182.9 cm; Wt 125.6 kg
[2018-06-23] MEDS ORDERED: Acetaminophen 500mg (ES) tab ORAL ONE (19:15)
[2018-06-23] MEDS ORDERED: Methocarbamol 750mg tab ORAL ONE (19:15)
[2018-06-23 19:43] VITALS: BP 129/77
[2018-06-23] MEDS ORDERED: ROBAXIN-750750 MG PO (19:53)
[2018-06-23] MEDS ORDERED: ACETAMINOPHEN-1 EAC1 ORAL (19:53)
[2018-06-23] MEDS ORDERED: LIDODERM700 M1 TOPIC (19:53)
[2018-06-23 20:17] VITALS: BP 129/77
--- NOTE | 2018-06-23 21:53 | Emergency Room Report ---
History of Present Illness General Chief Complaint: Pain Source: Patient Present Illness HPI 62-year-old female presents ED for evaluation. Patient complaining of left shoulder pain. States she's had chronic arthritis pain in both shoulders for years but states there is worsening of pain in her left shoulder over the last week. States she received physical therapy but states it did not help. Pain is throbbing, 8 out of 10, nonradiating. Denies chest pain or shortness of breath. Denies any recent fall or injury. No other aggravating relieving factors. Denies any associated symptoms Allergies: Coded Allergies: FISH CONTAINING PRODUCTS (Verified Allergy, Severe, Hives, 06/14/12) Pork (Verified Allergy, Intermediate, 06/09/13) smelling pork cause nausea-eating pork cause vomiting Patient History Past Medical History: asthma, COPD, GERD Past Surgical History: none Pertinent Family History: none Social History: Denies: smoking, alcohol use, drug use Now: No Immunizations: UTD Reviewed Nursing Documentation: PMH: Agreed; PSxH: Agreed Nursing Documentation-PMH Past Medical History: No History, Except For Hx Hypertension: No Hx Asthma: Yes Hx COPD: Yes - Emphysema Hx Cancer: No Hx Gastrointestinal Problems: Yes - GERD, Hiatal hernia Hx Neurological Problems: No Review of Systems All Other Systems: negative except mentioned in HPI Physical Exam Vital Signs Date Time Temp Pulse Resp B/P (MAP) Pulse Ox O2 Delivery O2 Flow Rate FiO2 06/23/18 18:48 98.1 125 24 129/77 95 Room Air Sp02 EP Interpretation: reviewed, normal General Appearance: no apparent distress, alert, GCS 15, non-toxic, obese Head: normocephalic, atraumatic Eyes: bilateral eye normal inspection, bilateral eye PERRL ENT: hearing grossly normal, normal pharynx, no angioedema, normal voice Neck: full range of motion, supple/symm/no masses Respiratory: chest non-tender, lungs clear, normal breath sounds, speaking full sentences Cardiovascular #1: regular rate, rhythm, no edema Cardiovascular #2: 2+ carotid (R), 2+ carotid (L), 2+ radial (R), 2+ radial (L) , 2+ dorsalis pedis (R), 2+ dorsalis pedis (L) Gastrointestinal: normal bowel sounds, non tender, soft, non-distended, no guarding, no rebound Rectal: deferred Genitourinary: normal inspection, no CVA tenderness Musculoskeletal: back normal, gait/station normal, normal range of motion, tender - L shoulder Neurologic: alert, oriented x3, responsive, motor strength/tone normal, sensory intact, speech normal Psychiatric: judgement/insight normal, memory normal, mood/affect normal, no suicidal/homicidal ideation Reflexes: 3+ bicep (R), 3+ bicep (L), 3+ tricep (R), 3+ tricep (L), 3+ knee (R) , 3+ knee (L) Skin: normal color, no rash, warm/dry, well hydrated Lymphatic: no adenopathy Medical Decision Making Diagnostic Impression: Primary Impression: Shoulder pain Qualified Codes: M25.512 - Pain in left shoulder; G89.29 - Other chronic pain ER Course Hospital Course 62-year-old female presents ED for evaluation of left sided shoulder pain Differential diagnoses include: Fracture, dislocation, sprain, contusion, atypical chest pain Clinical course Patient placed on stretcher. After initial history and physical, I ordered pain medications, EKG, shoulder x-ray EKGnormal sinus rhythm no acute ischemic changes interpreted by me Shoulder x-ray shows no acute fracture or arthropathy Patient has no cardiac risk factors. Vital stable. I do not suspect atypical chest pain. Patient does have history of chronic shoulder pain Discussed findings with patient. On reassessment symptoms are improved. Safe for discharge. We'll provide ortho referral. Diagnosis - shoulder pain Stable and discharged to home with prescription for tylenol #3, robaxin, lidoderm. apply ice, keep elevated. weight bear as tolerated. Followup with PMD/ortho. Return to ED if symptoms recur or worsen EKG Diagnostic Results Rate: normal Rhythm: NSR ST Segments: no acute changes ASA given to the pt in ED: No Rhythm Strip Diag. Results EP Interpretation: yes Rhythm: NSR, no PVC's, no ectopy Other X-Ray Diagnostic Results Other X-Ray Diagnostic Results : X-Ray ordered: L shoulder # of Views/Limited Vs Complete: 3 View Indication: Pain EP Interpretation: Yes Interpretation: no dislocation, no soft tissue swelling, no fractures Impression: No acute disease Electronically Signed by: Electronically signed by Bert Thomas MD Last Vital Signs Date Time Temp Pulse Resp B/P (MAP) Pulse Ox O2 Delivery O2 Flow Rate FiO2 06/23/18 20:17 98.1 89 24 129/77 95 Room Air Status: improved Disposition: HOME, SELF-CARE Condition: Stable Scripts Lidocaine (Lidoderm) 1 Each Adh..patch 1 PATCH TOPIC DAILY, #7 PATCH 0 Refills Patch(es) may remain in place for up to 12 hours in any 24-hour period. Prov: Bert Thomas MD 06/23/18 Methocarbamol* (ROBAXIN-750*) 750 Mg Tablet 750 MG PO TID, #21 TAB 0 Refills Prov: Bert Thomas MD 06/23/18 Acetaminophen With Codeine (T#3) (TYLENOL #3 TAB*) Y Tab 1 TAB ORAL Q8H PRN for For Pain for 12 Days, TAB Prov: Bert Thomas MD 06/23/18 [facility]: [facility] Open 24 hour /7 days a week by Appointment Only [address] [facility] [address] Patient Instructions: Acromioclavicular Injuries, [id number] Bert Thomas MD Jun 23, 2018 21:53
--- NOTE | 2018-06-24 12:03 | Diagnostic Imaging Report ---
Indication: left shoulder pain Findings: 3 views of the left shoulder were obtained. Alignment of the left shoulder is normal. No acute fracture is identified. Bones are moderately osteopenic. Soft tissues are unremarkable. Impression: No acute injury
--- NOTE | 2018-06-24 21:56 | Cardiology Report ---
APPROVED REPORT EKG Measurement Heart [id number] [place] [id number] Sinus tachycardia Incomplete right bundle branch block Possible inferior infarct, age undetermined Abnormal ECG
== END 2018-06-23 20:18 | disposition home or self-care (01) ==
LOC: EMR 19:11
DX: M25.512 Pain in left shoulder (principal); G89.29 Other chronic pain; J44.9 Chronic obstructive pulmonary disease, unspecified; K44.9 Diaphragmatic hernia without obstruction or gangrene; I10 Essential (primary) hypertension; K21.9 Gastro-esophageal reflux disease without esophagitis
CPT/HCPCS: 93005; 99283

== ENCOUNTER 2019-08-22 23:35 | Emergency (ER) | payer MEDICAID, OTHER ==
[~2019-08-22] VITALS: Ht 182.9 cm; Wt 145.1 kg
[~2019-08-22 23:35] MED LIST changes: +ACETAMINOPHEN-1 EAC1 ORAL; +FAMOTIDINE20 MG ORAL; +LIDOCAINE VISC100 ML ORAL; +LIDODERM700 M1 TOPIC; +MYLANTA MAXIMU355 ML PO; +ROBAXIN-750750 MG PO; +TYLENOL325 MG ORAL
[2019-08-22 23:45] VITALS: BP 191/112
[2019-08-22] MEDS ORDERED: Solu-MEDROL 125mg Inj IVP ONE (23:45)
[2019-08-22] MEDS ORDERED: Ipratropium 0.02% Inh Soln 2.5ml UD HHN ONE (23:45)
[2019-08-23] MEDS: Albuterol ud Inhalation HHN SCH ×2 (00:02→00:03)
[2019-08-23 00:08] LABS: BASOPHILS % (AUTO) 1.4 % (0.0-2.0); EOSINOPHILS % (AUTO) 4.4 % (0.0-3.0); HEMATOCRIT 43.5 % (37.0-47.0); HEMOGLOBIN 14.2 G/DL (12.0-16.0); LYMPHOCYTES % (AUTO) 36.2 % (20.0-45.0); MEAN CORPUSCULAR VOLUME 94 FL (80-99); MONOCYTES % (AUTO) 7.4 % (1.0-10.0); NEUTROPHILS % (AUTO) 50.6 % (45.0-75.0); PLATELET COUNT 354 K/UL (150-450); RED CELL DISTRIBUTION WIDTH 12.6 % (11.6-14.8); WHITE BLOOD COUNT 6.6 K/UL (4.8-10.8)
[2019-08-23 00:19] LABS: ANION GAP 11 mmol/L (5-15); BLOOD UREA NITROGEN 9 mg/dL (7-18); CALCIUM 9.2 MG/DL (8.5-10.1); CARBON DIOXIDE 27 MMOL/L (21-32); CHLORIDE 102 MMOL/L (98-107); CREATININE 1.1 MG/DL (0.55-1.30); SODIUM 140 MMOL/L (136-145)
[2019-08-23] MEDS ORDERED: ATROVENT HFA12.9 GM IH (00:22)
[2019-08-23 00:36] LABS: ALANINE AMINOTRANSFERASE 19 U/L (12-78); ALBUMIN 3.8 G/DL (3.4-5.0); ALKALINE PHOSPHATASE 128 U/L (46-116); ASPARTATE AMINO TRANSFERASE 29 U/L (15-37); BILIRUBIN,TOTAL 0.6 MG/DL (0.2-1.0); CREATINE KINASE 309 U/L (26-308); FERRITIN 95 NG/ML (8-388); LACTATE DEHYDROGENASE 451 U/L (81-234)
--- NOTE | 2019-08-23 00:51 | Emergency Room Report ---
History of Present Illness General Chief Complaint: Asthma Source: Patient, EMS Present Illness HPI Patient presents with increased dyspnea via paramedics. This is the third episode in the last few weeks. She has been tested in April and also in June for COVID-19 and both times they were negative. She denies fever or productive cough. She has chest pressure but no pain. She denies any swelling in her ankles or calf pain. No hemoptysis. No nausea or vomiting. She has a nebulizer and used it just before paramedics brought her. They treated with her hand-held nebulizer in the field which she says did not help very much. Not her worst attack. She has had steroids in the past. Patient had DVT after surgery 2 years ago. Not on anticoagulation. Denies prior PE. No fevers, chills, sore throat, chest pain, palpitations, nausea, vomiting, diarrhea, dysuria, abdominal pain, joint pain, rashes, depression, anxiety, visual changes, dizziness, headache. 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 COVID-19 Screening: Negative COVID-19 COVID-19 Testing Source: [facility] Patient History Past Medical History: see triage record Social History: Denies: smoking, alcohol use, drug use Social History Narrative From home Now: No Reviewed Nursing Documentation: PMH: Agreed; PSxH: Agreed Nursing Documentation-PMH Past Medical History: No History, Except For Hx Cardiac Problems: Yes - arthritis Hx Hypertension: No Hx Pacemaker: No Hx Asthma: Yes - chronic respiratory failure Hx COPD: No Hx Diabetes: No Hx Cancer: No Hx Gastrointestinal Problems: No Hx Dialysis: No History Of Psychiatric Problem: No Hx Neurological Problems: No Hx Cerebrovascular Accident: No Hx Seizures: No Review of Systems All Other Systems: negative except mentioned in HPI Physical Exam Vital Signs Date Time Temp Pulse Resp B/P (MAP) Pulse Ox O2 Delivery O2 Flow Rate FiO2 08/22/19 23:27 98.1 118 24 191/112 (138) 99 Room Air 08/23/19 00:03 21 Sp02 EP Interpretation: reviewed, normal General Appearance: well appearing, GCS 15, mild distress, obese Head: normocephalic Eyes: bilateral eye normal inspection, bilateral eye PERRL, bilateral eye EOMI ENT: moist mucus membranes Neck: supple Respiratory: respiratory distress - mild, wheezing, expiration, inspiration Cardiovascular #1: regular rate, rhythm, no edema Cardiovascular #2: 2+ radial (R) Gastrointestinal: normal inspection, normal bowel sounds, non tender, no mass, non-distended, overweight Genitourinary: no CVA tenderness Musculoskeletal: back normal, normal range of motion, no calf tenderness, gait/ station normal Neurologic: alert, oriented x3, grossly normal Psychiatric: mood/affect normal Skin: no rash, warm/dry Procedures Critical Care Time Critical Care Time Total Critical Care Time: 30 min bedside evaluation and treatment excludes procedures (EKG). Reason for critical care: status asthmaticus, hypoxia, tachycardia, discussions with transfer MD, patient reluctance to accept treatment Possible complications: hypotension, hypertension, HI, shock, arrhythmias, metabolic acidosis, end organ damage, respiratory failure. Interventions: Course: Consultations: nursing staff, EMS, RT, accepting MD Performed by: Dr. Cruz Tolerated well condition = serious Medical Decision Making Diagnostic Impression: Primary Impression: Status asthmaticus Qualified Codes: J45.52 - Severe persistent asthma with status asthmaticus ER Course Patient presents with severe wheezing and dyspnea on exertion. Differential includes COVID-19, acute myocardial infarction, pulmonary edema, exacerbation of asthma/status asthmaticus, pulmonary embolus amongst others. Evaluation with EKG, chest x-ray and labs. The patient will be treated with Solu-Medrol and breathing treatments aggressively. Patient is placed on a traveling representative. She is tested twice negative recently for COVID-19 suspicion for this as etiology is less and the patient is not placed in isolation at this time. EKG sinus tachycardia without injury. Chest x-ray COPD and pulmonary hypertension. Labs with normal white count but eosinophilia. Patient is still wheezing. She feels a little bit better after first barrage of breathing treatments and Solu-Medrol. Patient needs to be admitted to the hospital. Discussed with Dr. Fernandez who requests rapid COVID-19 test. 0045 Patient extremely dyspneic after ambulation to bathroom. Mg is normal, but will give as patient does not want another breathing treatment. Sats 100% on room air. 01:10 Patient improving. Rapid COVID-19 test negative. Due to persistent tachypnea and tachycardia the patient is treated with a dose of Lovenox here. Patient refuses to be on oxygen. RA sat - 93% Still with wheezes but NAD at rest. Patient transferred improved and stable for transfer, though still serious. Laboratory Tests Test 08/22/19 23:53 08/23/19 00:07 08/23/19 01:04 White Blood Count 6.6 K/UL (4.8-10.8) Red Blood Count 4.60 M/UL (4.20-5.40) Hemoglobin 14.2 G/DL (12.0-16.0) Hematocrit 43.5 % (37.0-47.0) Mean Corpuscular Volume 94 FL (80-99) Mean Corpuscular Hemoglobin 30.8 PG (27.0-31.0) Mean Corpuscular Hemoglobin Concent 32.6 G/DL (32.0-36.0) Red Cell Distribution Width 12.6 % (11.6-14.8) Platelet Count 354 K/UL (150-450) Mean Platelet Volume 6.0 FL (6.5-10.1) L Neutrophils (%) (Auto) 50.6 % (45.0-75.0) Lymphocytes (%) (Auto) 36.2 % (20.0-45.0) Monocytes (%) (Auto) 7.4 % (1.0-10.0) Eosinophils (%) (Auto) 4.4 % (0.0-3.0) H Basophils (%) (Auto) 1.4 % (0.0-2.0) Prothrombin Time 10.8 SEC (9.30-11.50) Prothrombin Time INR 1.0 (0.9-1.1) Activated Partial Thromboplast Time 25 SEC (23-33) Sodium Level 140 MMOL/L (136-145) Potassium Level 4.0 MMOL/L (3.5-5.1) Chloride Level 102 MMOL/L (98-107) Carbon Dioxide Level 27 MMOL/L (21-32) Anion Gap 11 mmol/L (5-15) Blood Urea Nitrogen 9 mg/dL (7-18) Creatinine 1.1 MG/DL (0.55-1.30) Estimated Glomerular Filtration Rate > 60 mL/min (>60) Glucose Level 103 MG/DL (74-106) Calcium Level 9.2 MG/DL (8.5-10.1) Magnesium Level 2.2 MG/DL (1.8-2.4) Ferritin 95 NG/ML (8-388) Total Bilirubin 0.6 MG/DL (0.2-1.0) Aspartate Amino Transferase (AST) 29 U/L (15-37) Alanine Aminotransferase (ALT) 19 U/L (12-78) Alkaline Phosphatase 128 U/L (46-116) H Lactate Dehydrogenase 451 U/L (81-234) H Total Creatine Kinase 309 U/L (26-308) H Troponin I 0.000 ng/mL (0.000-0.056) C-Reactive Protein, Quantitative 2.2 mg/dL (0.00-0.90) H Pro-B-Type Natriuretic Peptide 23 pg/mL (0-125) Total Protein 7.6 G/DL (6.4-8.2) Albumin 3.8 G/DL (3.4-5.0) Globulin 3.8 g/dL Albumin/Globulin Ratio 1.0 (1.0-2.7) Lactic Acid Level 0.90 mmol/L (0.4-2.0) Urine Color Pale yellow Urine Appearance Clear Urine pH 7 (4.5-8.0) Urine Specific [place] 1.005 (1.005-1.035) Urine Protein Negative (NEGATIVE) Urine Glucose (UA) Negative (NEGATIVE) Urine Ketones Negative (NEGATIVE) Urine Blood Negative (NEGATIVE) Urine Nitrite Negative (NEGATIVE) Urine Bilirubin Negative (NEGATIVE) Urine Urobilinogen Normal MG/DL (0.0-1.0) Urine Leukocyte Esterase Negative (NEGATIVE) Microbiology Date/Time Source Procedure Growth Status 08/23/19 00:53 Nasopharynx SARS-CoV-2 RdRp Gene Assay - Final Complete EKG Diagnostic Results Rate: tachycardiac Rhythm: NSR ST Segments: no acute changes Rhythm Strip Diag. Results EP Interpretation: yes Rhythm: no PVC's, no ectopy - Alberto tachycardia Chest X-Ray Diagnostic Results Chest X-Ray Diagnostic Results : Chest X-Ray Ordered: Yes # of Views/Limited/Complete: 1 View Indication: Shortness of Breath EP Interpretation: Yes Interpretation: no consolidation, no effusion, no pneumothorax, other - Pulmonary hypertension Impression: Other Electronically Signed by: Electronically signed by Artru Cruz MD Last Vital Signs Date Time Temp Pulse Resp B/P (MAP) Pulse Ox O2 Delivery O2 Flow Rate FiO2 08/23/19 02:30 98.1 113 18 112/80 94 Room Air 21 Status: improved Disposition: SHORT-TERM HOSP Condition: Serious Referrals: [facility],REFERRING (PCP) Artur Cruz MD Aug 23, 2019 00:51
[2019-08-23 01:11] LABS: APPEARANCE,URINE CLEAR; BILIRUBIN, URINE NEGATIVE (NEGATIVE); COLOR,URINE PALE YELLOW; GLUCOSE, URINE (UA) NEGATIVE (NEGATIVE); KETONES,URINE NEGATIVE (NEGATIVE); LEUKOCYTE ESTERASE ,URINE NEGATIVE (NEGATIVE); NITRITE,URINE NEGATIVE (NEGATIVE); PH,URINE 7 (4.5-8.0); PROTEIN,URINE NEGATIVE (NEGATIVE); UROBILINOGEN,URINE NORMAL MG/DL (0.0-1.0)
[2019-08-23 01:34] VITALS: BP 112/80
[2019-08-23] MEDS ORDERED: Enoxaparin 120 mg inj SUBQ SCH (01:45)
[2019-08-23] MEDS ORDERED: Enoxaparin 60mg Inj SUBQ ONE (01:49)
[2019-08-23] MEDS ORDERED: Enoxaparin 120 mg inj SUBQ ONE (02:00)
[2019-08-23 02:30] VITALS: BP 112/80
--- NOTE | 2019-08-23 09:57 | Diagnostic Imaging Report ---
Procedure: XRAY Chest 1v Reason for study: Reason For Exam: DYSPNEA Comparison films: 02/16/2018. FINDINGS: A single one view chest is obtained. Vascularity is normal. The lung [place] are clear bilaterally. Cardiac and mediastinal silhouette are within normal limits. CP angles are sharp. The bony thorax appear unremarkable. IMPRESSION: NO ACUTE CARDIOPULMONARY DISEASE.
== END 2019-08-23 02:30 | disposition short-term general hospital (02) ==
LOC: EDBD 23:35 → EMR 08-23
DX: J45.52 Severe persistent asthma with status asthmaticus (principal); M19.90 Unspecified osteoarthritis, unspecified site; E66.9 Obesity, unspecified; R00.0 Tachycardia, unspecified; R06.82 Tachypnea, not elsewhere classified; Z91.018 Allergy to other foods; Z91.013 Allergy to seafood; Z86.718 Personal history of other venous thrombosis and embolism; I27.20 Pulmonary hypertension, unspecified
CPT/HCPCS: 36415; 71045; 80053; 81003; 82550; 82728; 83605; 83615; 83735; 83880; 84484; 85025; 85610; 85730; 86140; 93005; 96361; 96365; 96372; 96375; 99291; J1650; J2930; J7030; U0002

== ENCOUNTER 2020-02-09 17:32 | Emergency (ER) | payer MEDICAID, OTHER ==
[~2020-02-09] VITALS: Ht 160 cm; Wt 99.8 kg
[~2020-02-09 17:32] MED LIST changes: +ATROVENT HFA12.9 GM IH
[2020-02-09] MEDS ORDERED: EPINEPHrine 1mg/1ml Amp IM ONE (18:00)
[2020-02-09] MEDS ORDERED: Solu-MEDROL 125mg Inj IVP ONE (18:00)
--- NOTE | 2020-02-09 18:07 | Emergency Room Report ---
History of Present Illness General Chief Complaint: Dyspnea/Respdistress Source: Patient Present Illness HPI Patient presents with wheezing and dyspnea. She says her inhalers are not working. She also has a nebulizer at home. She denies fevers or chills or productive cough at this time. She has some discomfort but no chest pain. She denies nausea, vomiting or diarrhea. She also denies dysuria. She has had steroids in the past. This is not her worst attack. She gets extremely out of breath with just a few steps. The patient recently filled on Atrovent inhaler. The patient was last seen August 22 of this year with a similar presentation. She did not need to be hospitalized at that time. Patient with a history of DVT after surgery 2 years ago. She denies history of pulmonary embolus. Patient denies exposure to Covid positive contacts. No sore throat, palpitations, abdominal pain, rashes, anxiety, visual changes, dizziness, headache. The patient walks with a walker. She has a history of arthritis. 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 Patient History Past Medical History: see triage record Social History: Denies: smoking, alcohol use, drug use Social History Narrative from home Reviewed Nursing Documentation: PMH: Agreed; PSxH: Agreed Nursing Documentation-PM Past Medical History: No History, Except For Hx Cardiac Problems: Yes - arthritis Hx Hypertension: No Hx Pacemaker: No Hx Asthma: Yes - chronic respiratory failure Hx COPD: Yes Hx Diabetes: No Hx Cancer: No Hx Gastrointestinal Problems: No Hx Dialysis: No Hx Neurological Problems: No Hx Cerebrovascular Accident: No Hx Seizures: No Review of Systems All Other Systems: negative except mentioned in HPI Physical Exam Vital Signs Date Time Temp Pulse Resp B/P (MAP) Pulse Ox O2 Delivery O2 Flow Rate FiO2 02/09/20 17:54 98.4 118 30 137/89 (105) 94 Room Air Sp02 EP Interpretation: reviewed, abnormal - Interpreted as slightly low by me General Appearance: GCS 15, non-toxic, mild distress, obese Head: normocephalic Eyes: bilateral eye normal inspection, bilateral eye PERRL, bilateral eye EOMI ENT: moist mucus membranes Neck: supple Respiratory: respiratory distress - Mild, wheezing, expiration, inspiration Cardiovascular #1: tachycardia Cardiovascular #2: 2+ radial (R) Gastrointestinal: normal inspection, normal bowel sounds, non tender, no mass, non-distended, overweight Genitourinary: no CVA tenderness Musculoskeletal: back normal, normal range of motion, no calf tenderness, gait/station normal - With walker and easily out of breath Neurologic: alert, oriented x3, grossly normal Psychiatric: mood/affect normal Skin: no rash, warm/dry, other - Fully dressed Medical Decision Making Diagnostic Impression: Primary Impression: acute asthma exacerbation Additional Impression: Eosinophilia Qualified Codes: D72.19 - Other eosinophilia ER Course The patient presents with mild respiratory distress with a history of asthma and inspiratory and expiratory wheezing. Differential includes exacerbated asthma, pulmonary embolus, acute myocardial infarction, pneumonia, bronchitis amongst others. Although risk of Covid is low we need to ascertain her Covid status in order to administer breathing treatments. Patient needs to be evaluated EKG, chest x-ray and labs. Although patient initially begun into noncardiac monitor setting she was moved to hall monitor. As she is in moderate distress at this time and epinephrine is indicated. In addition the patient will be instructed on using 5 puffs of her metered-dose inhaler over the 5-minute period of time. Some improvememnt after IM epi EKG no injury. Chest x-ray no infiltrates. CBC normal however there is eosinophilia. CMP unremarkable. Troponin negative. HR better and not as labored. Needs COVID test for breathing treatments. Also magnesium ordered. 1940 Covid negative. Albuterol and Atrovent ordered. Clear. Remarkably improved. OK to go home. Discussed findings with patient and treatment plan. Patient stable for outpatient observation and treatment. Laboratory Tests Test 02/09/20 18:22 White Blood Count 5.5 K/UL (4.8-10.8) Red Blood Count 4.60 M/UL (4.20-5.40) Hemoglobin 14.0 G/DL (12.0-16.0) Hematocrit 41.0 % (37.0-47.0) Mean Corpuscular Volume 89 FL (80-99) Mean Corpuscular Hemoglobin 30.4 PG (27.0-31.0) Mean Corpuscular Hemoglobin Concent 34.1 G/DL (32.0-36.0) Red Cell Distribution Width 13.9 % (11.6-14.8) Platelet Count 283 K/UL (150-450) Mean Platelet Volume 6.0 FL (6.5-10.1) L Neutrophils (%) (Auto) 54.8 % (45.0-75.0) Lymphocytes (%) (Auto) 30.5 % (20.0-45.0) Monocytes (%) (Auto) 7.3 % (1.0-10.0) Eosinophils (%) (Auto) 5.2 % (0.0-3.0) H Basophils (%) (Auto) 2.2 % (0.0-2.0) H Prothrombin Time 10.5 SEC (9.30-11.50) Prothrombin Time INR 0.9 (0.9-1.1) Activated Partial Thromboplast Time 23 SEC (23-33) Urine Color Pale yellow Urine Appearance Clear Urine pH 6 (4.5-8.0) Urine Specific [place] 1.010 (1.005-1.035) Urine Protein Negative (NEGATIVE) Urine Glucose (UA) Negative (NEGATIVE) Urine Ketones Negative (NEGATIVE) Urine Blood 2+ (NEGATIVE) H Urine Nitrite Negative (NEGATIVE) Urine Bilirubin Negative (NEGATIVE) Urine Urobilinogen Normal MG/DL (0.0-1.0) Urine Leukocyte Esterase Negative (NEGATIVE) Urine RBC 2-4 /HPF (0 - 2) H Urine WBC 2-4 /HPF (0 - 2) Urine Squamous Epithelial Cells Few /LPF (NONE/OCC) Urine Bacteria Few /HPF (NONE) Sodium Level 140 MMOL/L (136-145) Potassium Level 4.3 MMOL/L (3.5-5.1) Chloride Level 105 MMOL/L (98-107) Carbon Dioxide Level 29 MMOL/L (21-32) Anion Gap 6 mmol/L (5-15) Blood Urea Nitrogen 11 mg/dL (7-18) Creatinine 0.9 MG/DL (0.55-1.30) Estimated Glomerular Filtration Rate > 60 mL/min (>60) Glucose Level 90 MG/DL (74-106) Lactic Acid Level 0.80 mmol/L (0.4-2.0) Calcium Level 9.1 MG/DL (8.5-10.1) Magnesium Level 2.0 MG/DL (1.8-2.4) Total Bilirubin 0.6 MG/DL (0.2-1.0) Aspartate Amino Transferase (AST) 27 U/L (15-37) Alanine Aminotransferase (ALT) 25 U/L (12-78) Alkaline Phosphatase 108 U/L (46-116) Total Creatine Kinase 405 U/L (26-308) H Troponin I 0.000 ng/mL (0.000-0.056) Pro-B-Type Natriuretic Peptide 35 pg/mL (0-125) Total Protein 7.7 G/DL (6.4-8.2) Albumin 3.7 G/DL (3.4-5.0) Globulin 4.0 g/dL Albumin/Globulin Ratio 0.9 (1.0-2.7) L Microbiology Date/Time Source Procedure Growth Status 02/09/20 19:42 Nasopharynx SARS-CoV-2 RdRp Gene Assay - Final Complete EKG Diagnostic Results Rate: tachycardiac Rhythm: NSR ST Segments: no acute changes - RBBB Rhythm Strip Diag. Results EP Interpretation: yes Rhythm: no PVC's, no ectopy, other - HR 110 Chest X-Ray Diagnostic Results Chest X-Ray Diagnostic Results : Chest X-Ray Ordered: Yes # of Views/Limited/Complete: 1 View Indication: Shortness of Breath EP Interpretation: Yes Interpretation: no consolidation, no effusion, no pneumothorax, other - COPD Impression: Other Electronically Signed by: Electronically signed by Artur Cruz MD Last Vital Signs Date Time Temp Pulse Resp B/P (MAP) Pulse Ox O2 Delivery O2 Flow Rate FiO2 02/09/20 23:00 97.8 92 22 128/76 100 Room Air 02/09/20 20:08 21 Status: improved Disposition: HOME, SELF-CARE Condition: Improved Scripts Prednisone* (PREDNISONE*) 20 Mg Tablet 40 MG ORAL DAILY, #10 TAB Prov: Artur Cruz MD 02/09/20 Albuterol Sulfate* (Albuterol Sulfate Hfa*) 8.5 Gm Hfa.aer.ad 2 PUFF INH Q4H, #1 INH 2 Refills Prov: Artur Cruz MD 02/09/20 Artur Cruz MD Feb 09, 2020 18:07
[2020-02-09 18:37] VITALS: BP 137/89
[2020-02-09] MEDS: Sodium Chloride 550 ML IV SCH ×2 (18:56→21:41)
[2020-02-09 19:10] VITALS: BP 133/85
[2020-02-09 19:24] LABS: ANION GAP 6 mmol/L (5-15); BLOOD UREA NITROGEN 11 mg/dL (7-18); CALCIUM 9.1 MG/DL (8.5-10.1); CARBON DIOXIDE 29 MMOL/L (21-32); CHLORIDE 105 MMOL/L (98-107); CREATININE 0.9 MG/DL (0.55-1.30); POTASSIUM 4.3 MMOL/L (3.5-5.1); SODIUM 140 MMOL/L (136-145)
[2020-02-09 19:26] LABS: INR 0.9 (0.9-1.1)
[2020-02-09 19:38] LABS: ALANINE AMINOTRANSFERASE 25 U/L (12-78); ALBUMIN 3.7 G/DL (3.4-5.0); ALBUMIN/GLOBULIN RATIO 0.9 (1.0-2.7); ALKALINE PHOSPHATASE 108 U/L (46-116); ASPARTATE AMINO TRANSFERASE 27 U/L (15-37); BILIRUBIN,TOTAL 0.6 MG/DL (0.2-1.0); CREATINE KINASE 405 U/L (26-308)
--- NOTE | 2020-02-09 19:42 | Diagnostic Imaging Report ---
EXAM: XR Chest, 1 View CLINICAL HISTORY: DYSPNEA TECHNIQUE: Frontal view of the chest. COMPARISON: 08/23/2019. FINDINGS: Lungs: Both lungs are well aerated. Minimal subsegmental atelectasis at the lung bases. A 1 cm asymmetric density is noted at the left lung base near the left CP angle. Pleural space: Unremarkable. No pneumothorax. Heart: Cardiomediastinal silhouette unremarkable. Mediastinum: See above. Bones/joints: There is osteopenia. IMPRESSION: 1. Osteopenia. 2. Minimal subsegmental atelectasis at the lung bases. 3. No active disease. 4. Nodular density near the left CP angle. Neoplasm or metastatic disease cannot be excluded. CT imaging of the chest without contrast is advised to follow.
[2020-02-09] MEDS ORDERED: Ipratropium 0.02% Inh Soln 2.5ml UD HHN ONE (19:45)
[2020-02-09] MEDS ORDERED: SINGULAIR10 MG ORAL (19:46)
[2020-02-09 19:59] LABS: BASOPHILS % (AUTO) 2.2 % (0.0-2.0); EOSINOPHILS % (AUTO) 5.2 % (0.0-3.0); LYMPHOCYTES % (AUTO) 30.5 % (20.0-45.0); MEAN CORPUSCULAR VOLUME 89 FL (80-99); MONOCYTES % (AUTO) 7.3 % (1.0-10.0); NEUTROPHILS % (AUTO) 54.8 % (45.0-75.0); PLATELET COUNT 283 K/UL (150-450); RED CELL DISTRIBUTION WIDTH 13.9 % (11.6-14.8); WHITE BLOOD COUNT 5.5 K/UL (4.8-10.8)
[2020-02-09] MEDS: Albuterol ud Inhalation HHN SCH (20:07)
[2020-02-09 20:09] LABS: APPEARANCE,URINE CLEAR; BILIRUBIN, URINE NEGATIVE (NEGATIVE); COLOR,URINE PALE YELLOW; GLUCOSE, URINE (UA) NEGATIVE (NEGATIVE); KETONES,URINE NEGATIVE (NEGATIVE); LEUKOCYTE ESTERASE ,URINE NEGATIVE (NEGATIVE); NITRITE,URINE NEGATIVE (NEGATIVE); PH,URINE 6 (4.5-8.0); PROTEIN,URINE NEGATIVE (NEGATIVE); UROBILINOGEN,URINE NORMAL MG/DL (0.0-1.0)
[2020-02-09] MEDS ORDERED: ALBUTEROL SULF8.5 G1 INH (22:37)
[2020-02-09] MEDS ORDERED: PREDNISONE20 MG ORAL (22:37)
[2020-02-09 23:00] VITALS: BP 128/76
== END 2020-02-09 23:00 | disposition home or self-care (01) ==
LOC: EMR 18:14
DX: J45.901 Unspecified asthma with (acute) exacerbation (principal); D72.19 Other eosinophilia; Z91.013 Allergy to seafood; Z91.018 Allergy to other foods
CPT/HCPCS: 36415; 71045; 80053; 81003; 82550; 83605; 83735; 83880; 84484; 85025; 85610; 85730; 93005; 94640; 96361; 96372; 96374; 99284; J0171; J2930; U0002